=== PATIENT | male | born 1990 | race Caucasian/White ===

== ENCOUNTER 2021-03-08 17:28 | Emergency (ER) | payer OTHER ==
[~2021-03-08] VITALS: Ht 175.3 cm; Wt 81.8 kg
[2021-03-08 17:48] VITALS: TEMP 103.3
[2021-03-08 20:16] VITALS: BP 132/78; PULSE 76
== END 2021-03-08 20:16 | disposition home or self-care (01) ==
LOC: COL.ER 17:28
DX: R50.9 Fever, unspecified (principal); R06.02 Shortness of breath; M79.602 Pain in left arm; M54.2 Cervicalgia; T50.B95A Adverse effect of other viral vaccines, initial encounter
CPT/HCPCS: J7030